=== PATIENT | male | born 1960 | race Caucasian/White ===

== ENCOUNTER 2024-02-22 06:46 | Day surgery (SDC) | payer MEDICAID, SELFPAY ==
--- NOTE | 2024-02-21 14:10 | W.PREOPHP ---
Assessment and Plan Assessment and plan (1) Encounter for screening colonoscopy: Status: Acute Assessment and plan: We reviewed the plan for a screening colonoscopy today, and Albaro had the chance to ask any questions about the procedure. He was able to provide informed consent and we can proceed as planned. History of Present Illness History of Present Illness Chief Complaint: screening colonoscopy Narrative: 63 y/o male with history of HTN, HLD and HSV presents for colonoscopy screening pre-op. His last screening was in 2020, which was remarkable for a sessile serrated polyp. He denies a family history of colon cancer. He denies any changes in bowel habits including bloody or black tarry stools, abdominal pain, diarrhea or constipation. He denies constitutional symptoms. He denies chest pain, palpitations, dyspnea or dyspnea with exertion. He denies prior history or family history of adverse reactions or complications with anesthesia. The patient denies any history of stroke, [place], seizures, bleeding or clotting disorders. He reports having metal implanted in his right foot. He had been previously scheduled for a colonoscopy, but there was some confusion about the time, and he had to reschedule for this occasion. Otherwise, there have been no significant interval changes to the history. PFS All Active Problems Encounter for screening colonoscopy (Acute) Acquired hallux limitus of both feet (Acute) Pain in left foot (Acute) Sessile serrated polyp of colon (Acute) Medical History Essential hypertension Erectile dysfunction Hyperlipidemia Herpes Per pt. oral cold sores Surgical History S/P tonsillectomy History of bunionectomy Social History Smoking/Tobacco Use Status: Former Tobacco Use Smokeless tobacco user: chewing tobacco Smoking risk assessment performed?: Yes Alcohol Intake: former Drug use: Never Substance use type: does not use Housing: apartment Do you feel safe at home: Yes Do you feel safe in your relationship?: Yes Meds Allergies and Home Medications Allergies Allergy/AdvReac Type Severity Reaction Status Date / Time No Known Allergies Allergy Verified 02/22/24 07:24 Home Medications ?Medication ?Instructions ?Recorded ?Confirmed ?Type aspirin 81 mg tablet,delayed 81 mg PO DAILY 12/14/23 02/19/24 History release atorvastatin 20 mg tablet 20 mg PO DAILY 12/14/23 02/22/24 History cholecalciferol (vitamin D3) 25 25 mcg PO DAILY 12/14/23 02/22/24 History mcg (1,000 unit) capsule lisinopril 5 mg tablet 5 mg PO DAILY 12/14/23 02/22/24 History sildenafil 25 mg tablet 25 mg PO DAILY PRN 12/14/23 02/22/24 History Exam Const General: cooperative, healthy appearing and not in acute distress Neck Neck: normal visual inspection, no lymphadenopathy and supple Resp Effort & Inspection: normal respiratory effort Auscultation: clear to auscultation bilaterally Cardio Jugular venous pressure: no JVD Rate: regular rate Rhythm: regular rhythm Heart Sounds: S1 normal and S2 normal GI Inspection: normal to inspection Palpation: soft, no guarding, no hernias and nontender Percussion: normal to percussion Auscultation: normal bowel sounds Neuro General: patient alert, patient awake and patient oriented x3 Psych Appearance: grossly normal
--- NOTE | 2024-02-21 14:16 | PDOC.DSDIS_ITS ---
Date of service: 02/22/24 Discharge Plan Disposition Patient Disposition: Home Condition: Good Discharge Details Reason For Visit: screening colonoscopy Attending Provider: Jake Chavez Primary Care Provider: Brandy Kaufman Home Meds and New Rx's Prescriptions: Continued aspirin 81 mg tablet,delayed release (DR/EC) 81 mg PO DAILY atorvastatin 20 mg tablet 20 mg PO DAILY cholecalciferol (vitamin D3) 25 mcg (1,000 unit) capsule 25 mcg PO DAILY lisinopril 5 mg tablet 5 mg PO DAILY sildenafil 25 mg tablet 25 mg PO DAILY PRN Rx Instructions: administer 30 minutes to 4 hours before activity Discharge Instructions Instructions: Colon polyps, Diverticulosis Additional Instructions: Albaro, was very nice meeting you today, and I hope you feel great later this afternoon. Your colonoscopy went very smoothly. Your prep was excellent, and I could see everything fine. I did find and remove a single polyp in your rectum today. It was small in size, and there are no features of it that appear worrisome to the naked eye. Regardless, to be safe, I will send this off to the pathologist for their review. Colon polyps 2, different varieties, and we use the information from the polyp analysis to help guide the timing of the next colonoscopy. Incidentally, he also have a little bit of diverticulosis. This occurs when the muscular portion of the colon wall weakens as we age. This causes small pockets or pouches to form. These pockets are referred to us diverticula, and the condition of having them inside is called diverticulosis. These pockets can get impacted with stool, and become infected and inflamed. That usually causes quite a bit of pain, often times across the left lower portion of the abdominal wall. We refer to those episodes as diverticulitis, and usually that is treated with antibiotics (although whether or not antibiotics are appropriate, he is often times debated). Hopefully, your diverticula will never bother you. Maintaining a diet that is rich in fiber, staying well-hydrated, and avoiding constipation are the best ways to help prevent complications of diverticulosis. If you need anything, or have any qu estions, please do not hesitate to ask, otherwise the office will be in touch once the polyp analysis is available. 1. If tolerated, consume a soft, low fiber diet for 1-2 days. 2[address] Do not drive, drink alcohol, operate machinery, make critical decisions, or do activities that require coordination or balance for 24 hours. 3. Because air was put into your colon during the procedure, expelling air from your rectum (passing gas or farting) is normal. 4. You may not have a bowel movement for 1-3 days because of the colonoscopy prep. This is normal. 5. Go directly to the emergency room if you notice any of the following: Develop chills (warm to touch), or if you have a thermometer and your temperature is above 101 Difficulty breathing or difficultly swallowing Persistent vomiting Severe abdominal pain, other than gas cramps Severe chest pain Black, tarry stools Any bleeding ? exceeding one tablespoon 6. Call your physician if the site where your intravenous was started becomes re d, swollen, painful, and warm to touch. 7. Your physician has reviewed your pre-procedure medications. Please continue to take those medications as previously ordered. You will be given specific information/education regarding any changes to your medications before leaving. Activity:: Activity as Tolerated Diet:: As Tolerated Discharge Orders Discharge Orders: Discharge Order (Routine); Ordered 02/21/24 Ordered By: Jake Chavez DS: Diagnosis Discharge Diagnosis (1) Encounter for screening colonoscopy: Status: Acute Asessment and Plan: Follow-up on polypectomy results
--- NOTE | 2024-02-21 14:19 | COLE_ITS ---
Date of service: 02/22/24 Time of Service: 08:43 Colonoscopy Report Date of procedure: 02/22/24 Pre-op diagnosis general: screening colonoscopy Post-op diagnosis procedure note: other (Rectal polyp, diverticulosis) Procedure: colonoscopy with polypectomy Surgeon: Jake Chavez Anesthesia Type: General:No Airway Estimated blood loss (mL): 5 Pathology: other (0.25 cm flat rectal polyp) Complications: None Disposition: same day Indications: Albaro is a 63 year old man who needs a screening colonoscopy Prep: Miralax/Dulcolax Procedure Start Time: 08:13 Procedure End Time: 08:33 Retraction Time: 26 Findings: 0.25 cm flat rectal polyp, diverticulosis Procedure Description: After the induction of anesthesia, and with the patient in left lateral decubitus position, I began by performing an external anorectal exam.? Perineum and skin were normal, as was the anal verge.? There was no evidence of external hemorrhoids.? Next, I performed a digital rectal exam.? I did not appreciate any abnormal findings.? Next, I advanced a colonoscope into the rectal vault.? I performed retroflexion.? This appeared normal.? In the lower third of the rectal vault was a 0.25 cm flat polyp. This was removed with cold forcep polypectomy. There was minimal bleeding. Using insufflation, I then advanced the colonoscope beyond the rectal folds and into the sigmoid colon before advancing towards the cecum.? The quality of the prep was excellent.? The scope was noted to be in the cecum by identification of the ileocecal valve and appendiceal orifice.? I then began withdrawing the colonoscope using repeated irrigation as necessary for full evaluation of the colonic mucosa. There were some occasional diverticula scattered through the length of the colon. once the scope was withdrawn to the level of the rectum, great care was taken to examine portions of the rectal folds.? Finally, the scope was withdrawn and the patient was brought to the same-day surgery recovery unit as the anesthetic wore off. ?The findings and instructions were shared with the patient prior to discharge. [place] Bowel Prep [place] Bowel Prep Right Colon: 3 Left Colon: 3 Transverse Colon: 3 Total Score: 9
[2024-02-22 07:26] VITALS: BP 131/82; PULSE 65; RESP 16; TEMP 36.5; O2SAT 98
[2024-02-22] MEDS: Lactated Ringers 1,000 ML 80 ML IV (07:35)
[2024-02-22 07:55] VITALS: BMI 31.0
--- NOTE | 2024-02-22 07:55 | W.ANESPRE ---
General Info Date of Service Date Performed: 02/22/24 Height: 5 ft 9 in Weight: 95.3 kg Body Mass Index (BMI): 31.0 Surgical Procedure: Operation Date: 02/22/24 08:20 Proposed Procedure Side Surgeon p Colonoscopy Jake Chavez MD Actual Procedure Side Surgeon p Colonoscopy Not Applicable Jake Chavez MD Meds Allergies and Home Medications Allergies Allergy/AdvReac Type Severity Reaction Status Date / Time No Known Allergies Allergy Verified 02/22/24 07:24 Home Medication ?Medication ?Instructions ?Recorded aspirin 81 mg tablet,delayed 81 mg PO DAILY 12/14/23 release atorvastatin 20 mg tablet 20 mg PO DAILY 12/14/23 cholecalciferol (vitamin D3) 25 25 mcg PO DAILY 12/14/23 mcg (1,000 unit) capsule lisinopril 5 mg tablet 5 mg PO DAILY 12/14/23 sildenafil 25 mg tablet 25 mg PO DAILY PRN 12/14/23 Current Visit Medications: Current Medications Generic Name Dose Route Start Last Admin Trade Name Freq PRN Reason Stop Dose Admin Ringer's Solution 1,000 mls @ 80 mls/hr 02/22/24 06:00 02/22/24 07:35 IV 03/20/24 23:59 80 mls/hr INFUSION KARENA Administration IV Miscellaneous Supplies 1 each 02/22/24 06:00 Iv Access IV 03/20/24 23:59 DIRECTED KARENA Ondansetron HCl 4 mg 02/21/24 14:20 Ondansetron 4 Mg/2 Ml Vial IVP 03/22/24 14:19 Q4H PRN PRN Nausea / Vomiting Sodium Chloride 0 ml 02/22/24 06:00 Normal Saline Flush 10 Ml Syr IV 03/20/24 23:59 PRN PRN Sodium Chloride 0 ml 02/22/24 06:00 Normal Saline 10 Ml Vial IJ 03/20/24 23:59 DIRECTED PRN Sterile Water 0 ml 02/22/24 06:00 Water,Injection,Sterile 10 Ml Vial IJ 03/20/24 23:59 DIRECTED PRN PFSH Active Problems Active Problems: Problem Status Onset Code Encounter for screening colonoscopy Acute Z12.11 Acquired hallux limitus of both feet Acute M20.5X1, M20.5X2 Pain in left foot Acute M79.672 Sessile serrated polyp of colon Acute D12.6 Medical History Medical History Essential hypertension Erectile dysfunction Hyperlipidemia Herpes Per pt. oral cold sores Surgical History Surgical History S/P tonsillectomy History of bunionectomy Tobacco Smoking/Tobacco Use Status: Former Tobacco Use Smokeless tobacco user: chewing tobacco Alcohol Alcohol Intake: former Substance Use Substance use: Never Substance use type: does not use Vital Signs and Lab Results Vital Signs Most Recent Vital Signs in EMR: Most Recent Vital Signs Temp Pulse Resp BP Pulse Ox 36.5 C 65 16 131/82 98 02/22/24 07:26 02/22/24 07:26 02/22/24 07:26 02/22/24 07:26 02/22/24 07:26 Lab Results Blood Type / Crossmatch: No Data to Display Complete Blood Count: No Data to Display Complete Metabolic Panel: No Data to Display Liver Function Panel: No Data to Display Coagulation Panel: No Data to Display Cardiac Panel: No Data to Display Arterial Blood Gas: No Data to Display Venous Blood Gas: No Data to Display Pancreas Panel: No Data to Display Thyroid Panel: No Data to Display Infectious Disease: No Data to Display Blood Cultures: No Data to Display Toxicology Panel: No Data to Display Anesthesia Assessment and Plan Anesthesia History Personal History: No History of Anesthesia Complications Family History: No Family History of Anesthesia Complications Exercise Tolerance Exercise Tolerance: Metabolic Equivalents>4 Pertinent Negatives Pertinent Negatives: No Symptoms of GERD Cardiac & Pulmonary Exam Cardiac Exam: Normal S1/S2 Heart Sounds Pulmonary Exam: Clear Bilateral Breath Sounds Implantable Cardiac Device Does patient have a Pacemaker or an ICD?: No Airway Exam Known Difficult Airway: No Mallampati Class: 2 Mouth Opening: Normal (> 3cm) Thyromental Distance: Greater than 3 cm Neck Range of Motion: Full ROM Neck Circumference: Normal Teeth Condition: Normal Dentition ASA Classification ASA Score: ASA 2 Emergency Case?: No NPO Status NPO Status: NPO Clears >2 hours, Solids >8 hours Anesthesia Plan Resuscitation Status: Full Code Anesthesia Technique: General Anesthesia Airway Planned: Natural Airway Monitors Used: Standard Monitors
--- NOTE | 2024-02-22 08:13 | BOWEL_PTH ---
PATIENT: Albaro Bowen LOC: [facility] U#:[id number] AGE/SX: 63/M ROOM: RE02/22/[address]: Jake Chavez MD : 1960 BED: DIS: 02/22/2024 SPEC #: [id number] RECD: 02/22/24 12:41 STATUS: SURJIT SORIANO #: [id number] WIN: 02/22/24 08:[address]: Jake Chavez DEPT: Surgical Specimen RECD BY: Madeleine Beltran Tissues: 1 - BIOPSY BOWEL Procedures: GROSS AND MICRO LEVEL 4 Comments: [id number]
[2024-02-22 08:39] VITALS: BP 83/57; PULSE 68; RESP 18; TEMP 36.6; O2SAT 94
--- NOTE | 2024-02-22 08:42 | W.ANESPOSTOP ---
Postoperative Evaluation Date, Time and Location Date Performed: 02/22/24 Time Performed: 08:42 Patient Location: Day Surgery Unit Vital Signs Most Recent Imported Vital Signs: Most Recent Vital Signs Temp Pulse Resp BP Pulse Ox 36.5 C 65 16 131/82 98 02/22/24 07:26 02/22/24 07:26 02/22/24 07:26 02/22/24 07:26 02/22/24 07:26 Assessment Mental Status: Awake (Alert & Oriented to Patient Baseline) Airway and Respiratory Function: Patent airway with normal (patient baseline) respiratory exam Cardiovascular Function: Hemodynamically Stable Hydration Status: Adequately Hydrated Nausea & Vomiting: No Nausea or Vomiting Pain: Pt. Denies Any Pain Peripheral Nerve Block: Patient did not receive a nerve block
[2024-02-22 09:10] VITALS: BP 116/73; PULSE 63; RESP 16; TEMP 36.8; O2SAT 96
== END 2024-02-22 09:54 | disposition home or self-care (01) ==
LOC: SUR 06:47
PROVIDERS: PCP Family Medicine; Visit Provider Surgery
PROC: 0DJD8ZZ Inspection of Lower Intestinal Tract, Via Natural or Artificial Opening Endoscopic (ICD-10-PCS; CPT 45378; principal; 2024-02-22 08:15)
DX: Z12.11 Encounter for screening for malignant neoplasm of colon (principal); D12.8 Benign neoplasm of rectum; K57.30 Diverticulosis of large intestine without perforation or abscess without bleeding
CPT/HCPCS: 45380; 88305; J2003; J2704

== ENCOUNTER 2024-02-29 02:20 | Outpatient (CLI) | payer MEDICAID, SELFPAY ==
--- NOTE | 2024-02-29 10:35 | DI.RAD_ITS ---
Exam(s) XR LUMBAR SPINE COMPLETE EXAM: XR LUMBAR SPINE COMPLETE CLINICAL HISTORY: LOW BACK PAIN, M54.50. TECHNIQUE: 2D digital imaging was performed. Five views. COMPARISON: No exams were available for comparison FINDINGS: BONES: No fracture or destructive lesion. Vertebral body heights are maintained. Small endplate os teophytes throughout. Facet degenerative changes greatest at L4-5 and L5-S1. DISKS: Moderate narrowing of the L1-2 disc space. Mild narrowing of the L2-3 and L3-4 disc spaces. Severe narrowing of the L5-S1 disc space. Intervertebral disc spaces are maintained. ALIGNMENT: Lumbar spinal alignment is within normal limits. SOFT TISSUE: Normal. IMPRESSION: Degenerative changes, greatest at L5-S1. DATA REPOSITORY: RADIATION DOSE DELIVERED:
== END 2024-02-29 02:40 ==
LOC: DI 02:20
PROVIDERS: PCP Family Medicine; Visit Provider Family Medicine
DX: M51.370 Other intervertebral disc degeneration, lumbosacral region with discogenic back pain only (principal)
CPT/HCPCS: 72110

== ENCOUNTER 2024-06-08 17:23 | Outpatient (REF) | payer MEDICAID, SELFPAY ==
[2024-06-08 15:42] LABS: ALT 34 U/L (16-63); AST 24 U/L (15-37); Alkaline Phosphatase 59 U/L (46-116); Anion Gap 9.3 mmol/L (3-11); BUN 16 mg/dL (7-18); Bilirubin, Total 1.1 mg/dL (0.2-1.0); CO2 26.7 mmol/L (21.0-32.0); Calcium 9.7 mg/dL (8.5-10.1); Chloride 105 mmol/L (98-107); Estimated GFR 84.05 (mL/min/1.73m2); Glucose 91 mg/dL (74-106); Potassium 4.6 mmol/L (3.5-5.1); Sodium 141 mmol/L (136-145); Total Protein 6.9 g/dL (6.4-8.2)
[2024-06-08 16:08] LABS: Calculated LDL 62 mg/dL (<100); Cholesterol 131 mg/dL (<200); HDL Cholesterol 51 mg/dL (>or=40); Triglyceride 90 mg/dL (<150)
[2024-06-08 23:46] LABS: PSA, Screening 0.4 ng/mL (<=4.5)
== END 2024-06-08 17:24 | disposition home or self-care (01) ==
LOC: NCHCN 17:23
PROVIDERS: PCP Family Medicine; Visit Provider Family Medicine
DX: I10 Essential (primary) hypertension (principal); E78.5 Hyperlipidemia, unspecified; Z12.5 Encounter for screening for malignant neoplasm of prostate
CPT/HCPCS: 80053; 80061; 84153